=== PATIENT | male | born 1990 | race Caucasian/White ===

== ENCOUNTER 2025-08-19 05:23 | Emergency (ER) | payer OTHER ==
[~2025-08-19] VITALS: Ht 180.3 cm; Wt 106.4 kg
[2025-08-19 06:54] VITALS: TEMP 98.305304
[2025-08-19] MEDS: KETOROLAC TROMETHAMINE 60 MG/2 ML VIAL IM ONE (06:59)
[2025-08-19 12:30] VITALS: BP 130/78; PULSE 95; RESP 17; O2SAT 98
== END 2025-08-19 13:01 | disposition home or self-care (01) ==
LOC: EMS 05:27
DX: S82.891A Other fracture of right lower leg, initial encounter for closed fracture (principal); E11.9 Type 2 diabetes mellitus without complications; Z98.890 Other specified postprocedural states; X58.XXXA Exposure to other specified factors, initial encounter; Y93.89 Activity, other specified; Y92.89 Other specified places as the place of occurrence of the external cause; Y99.8 Other external cause status
CPT/HCPCS: 99285; 73610; 96372; J1885; J1171